=== PATIENT | female | born 1980 | race Caucasian/White ===

== ENCOUNTER → 2019-04-23 | Outpatient (CLI) | payer OTHER, SELFPAY ==
--- NOTE | 2019-04-23 07:07 | BI_ITS ---
MAMMOGRAPHY - BILATERAL SCREENING 3-D TOMOSYNTHESIS REASON FOR EXAM: Female, 39 years old. Bilateral Screening 3-D tomosynthesis PERTINENT HISTORY: History of bilateral breast lumps worked up in 2015. Ultrasound showed cysts. TECHNIQUE: 2-D mammograms and 3-D Tomosynthesis of the breast (s) were performed. CAD was performed. COMPARISON: September 23, 2015 FINDINGS: The breast composition is heterogeneously dense that can obscure small breast masses. Scattered benign calcifications are seen. No dense spiculated masses or suspicious microcalcifications are identified. No architectural distortion is identified. There is no skin thickening or retraction. There has been no significant change since the prior study. BI/SCREEN MAMM (CAD) W/CALEB BILAT IMPRESSION: No mammographic signs of malignancy. Routine yearly mammograms recommended. ASSESSMENT CATEGORY: BIRADS Category 2: Benign. A letter regarding these results will be sent to the patient by the facility within 30 days. FOLLOW UP RECOMMENDATION: Yearly follow up mammogram recommended. (A) Approximately 10% of breast cancers are not detected by mammography. A normal mammogram should not delay biopsy of a clinically suspicious abnormality. Electronically Signed: Ziyad Villanueva MD at 11:51 EDT , Service support ,
== END | disposition home or self-care (01) ==
LOC: OPBI 07:06
PROVIDERS: Family Provider Nurse Practitioner; PCP Nurse Practitioner; Referring Provider Nurse Practitioner; Visit Provider Nurse Practitioner
DX: Z12.31 Encounter for screening mammogram for malignant neoplasm of breast (principal)
CPT/HCPCS: 77063; 77067

== ENCOUNTER → 2019-04-30 12:01 | Outpatient (CLI) | payer OTHER, SELFPAY ==
[2019-05-02 16:07] LABS: PROEL- A/G Ratio 1.3 (0.7-1.7); PROEL- Albumin 4.1 g/dL (2.9-4.4); PROEL- Alpha-1 Globulin 0.2 g/dL (0.0-0.4); PROEL- Alpha-2 Globulin 0.6 g/dL (0.4-1.0); PROEL- Gamma Globulin 1.4 g/dL (0.4-1.8); PROEL- Globulin, Total 3.2 g/dL (2.2-3.9); PROEL- TOTAL PROTEIN 7.3 g/dL (6.0-8.5); PROELU- Albumin, Urine 49.6 % (.); PROELU- Alpha-1-Globulin,Ur 3.7 % (.); PROELU- Alpha-2-Globulin,Ur 10.6 % (.); PROELU- Gamma Globulin, Ur 17.2 % (.)
[2019-06-06 16:48] LABS: PROELU- Beta Globulin, Ur 18.9 %; Total Protein, Ur 21.8 mg/dl (0.0-15.0)
== END ==
PROVIDERS: Visit Provider Nurse Practitioner
DX: D72.810 Lymphocytopenia (principal); E87.1 Hypo-osmolality and hyponatremia
CPT/HCPCS: 84165; 84166

== ENCOUNTER → 2023-05-16 | Outpatient (CLI) | payer OTHER, SELFPAY ==
--- NOTE | 2023-05-16 12:07 | US_ITS ---
STUDY: THYROID ULTRASOUND REASON FOR EXAM: Female, 43 years old. Nodule, fatigue TECHNIQUE: Ultrasound evaluation of the thyroid was performed with real-time and static hare-scale imaging. COMPARISON: None. FINDINGS: RIGHT LOBE: The right lobe of the thyroid gland measures 4.1 cm x 1.1 cm x 1.3 cm. There is a homogeneous echotexture. There are no demonstrated solid, cystic or complex lesions. LEFT LOBE: The left lobe of the thyroid gland measures 4.5 cm x 1.1 cm x 1.1 cm. There is a homogeneous echotexture. There are no demonstrated solid, cystic or complex lesions. ISTHMUS: The isthmus measures 2.3 mm. There is a 1.3 cm x 0.5 cm x 0.3 cm benign appearing lymph node in the left cervical region. US/Thyroid IMPRESSION: Normal ultrasound examination of the thyroid. Electronically Signed: Vicente Graham MD at 15:37 EDT ,
== END | disposition home or self-care (01) ==
LOC: US 12:06
PROVIDERS: PCP Nurse Practitioner Family; Referring Provider Nurse Practitioner Family; Visit Provider Nurse Practitioner Family
DX: R53.83 Other fatigue (principal); E04.1 Nontoxic single thyroid nodule
CPT/HCPCS: 76536

== ENCOUNTER → 2025-03-10 | Outpatient (CLI) | payer OTHER, SELFPAY ==
--- NOTE | 2025-03-10 09:51 | BI_ITS ---
EXAM: SCRN MAMM (CAD)W/CALEB BILAT DATE: 03/10/2025 CLINICAL HISTORY: F, Age 45 y/o , SCREENING BREAST CANCER RISK ASSESSMENT: Not reported TECHNIQUE: Bilateral screening digital breast tomosynthesis with 2D and 3D images. Computer aided detection. COMPARISON: Prior exam(s) were compared FINDINGS: TISSUE DENSITY: The breast tissue is extremely dense which lowers the sensitivity of mammography. Bilateral Breast Mammographic Findings: No suspicious masses, calcifications or other abnormalities are identified. BI/SCRN MAMM (CAD)W/CALEB BILAT IMPRESSION: OVERALL FINAL ASSESSMENT: BIRADS 1 NEGATIVE RECOMMENDATION: Routine annual follow-up in 1 Year A letter with findings and recommendations will be mailed to the patient. Reading Location: [id number]
== END | disposition home or self-care (01) ==
LOC: OPBI 09:49
DX: Z12.31 Encounter for screening mammogram for malignant neoplasm of breast (principal)
CPT/HCPCS: 77063; 77067